=== PATIENT | male | born 1980 | race Two or more races ===

== ENCOUNTER 2018-05-10 08:38 | Emergency (ER) | payer MEDICAID ==
[~2018-05-10] VITALS: Ht 162.6 cm; Wt 84.8 kg
[2018-05-10 09:40] VITALS: BP 153/98
== END 2018-05-10 09:40 | disposition home or self-care (01) ==
LOC: ED 08:38
DX: R10.11 Right upper quadrant pain (principal); R10.13 Epigastric pain
CPT/HCPCS: J1885

== ENCOUNTER 2018-07-14 06:53 | Emergency (ER) | payer MEDICAID ==
[~2018-07-14] VITALS: Ht 162.6 cm; Wt 84.1 kg
[2018-07-14 07:37] VITALS: BP 147/88
== END 2018-07-14 07:37 | disposition home or self-care (01) ==
LOC: ED 06:53
DX: H01.004 Unspecified blepharitis left upper eyelid (principal)